=== PATIENT | male | born 1965 | race African-American/Black ===

== ENCOUNTER 2025-02-28 06:08 | Day surgery (SDC) | payer MEDICARE ==
[~2025-02-28] VITALS: Ht 167.6 cm; Wt 89.1 kg
[~2025-02-28 06:08] MED LIST: CODACE60 PO; HYDCHL25 PO
[2025-02-28] MEDS ORDERED: CeFAZolin Sodium 2,000 MG VIAL ONE (06:20)
[2025-02-28] MEDS ORDERED: CHLO25B PO (06:32)
[2025-02-28] MEDS ORDERED: LISI20 PO (06:32)
[2025-02-28] MEDS ORDERED: EZET10 PO (06:33)
[2025-02-28] MEDS ORDERED: FentaNYL Citrate 50 MCG/ML 2 ML Injection ONE (06:57)
[2025-02-28] MEDS ORDERED: Dexamethasone Sod Phos 10 MG/ML 1ML VIAL ONE (06:57)
[2025-02-28] MEDS ORDERED: Ondansetron HCl 2 MG / ML 2ML Vial ONE (06:57)
[2025-02-28] MEDS ORDERED: Bupivacaine HCl 0.25% 30 ML Injection ONE (06:58)
[2025-02-28] MEDS ORDERED: Ketorolac Tromethamine 30mg Vial ONE (06:58)
[2025-02-28] MEDS ORDERED: Rocuronium Bromide 10 MG/ML 5ML Injection IV ONE (06:58)
[2025-02-28] MEDS ORDERED: Bupivacaine 0.5% HCl 5 MG/ML 30MLVIAL ONE (06:58)
--- NOTE | 2025-02-28 07:38 | NUR ---
02/28/25 0738 Shawn Calvo TIME OUT 0727. DR GASPAR PERFORMS NERVE BLOCK. PT TOLERATED WELL. START TIME 0729, END TIME 0732.
[2025-02-28] MEDS ORDERED: Sugammadex Sodium 200 MG/2ML SDV (100 MG/ML) ONE (07:54)
[2025-02-28] MEDS ORDERED: Phenylephrine HCl 100 MCG/ML-NS 10MLSYR (1MG/10ML) ONE ×2 (07:59→08:11)
[2025-02-28] MEDS ORDERED: ePHEDrine Sulfate 50 MG/ML 1ML Injection ONE (08:19)
--- NOTE | 2025-02-28 09:47 | NUR ---
02/28/25 0947 Jeri Charlton REPORT RECEIVED FROM AIMEE MARIANO.
[2025-02-28 10:21] VITALS: BP 176/83
== END 2025-02-28 10:49 | disposition home or self-care (01) ==
LOC: ORSCSDS 06:08
PROVIDERS: Orthopaedic Surgery
PROC: 0LM24ZZ Reattachment of Left Shoulder Tendon, Percutaneous Endoscopic Approach (ICD-10-PCS; principal; 2025-02-28 07:30)
PROC: 0RNK4ZZ Release Left Shoulder Joint, Percutaneous Endoscopic Approach (ICD-10-PCS; principal; 2025-02-28 07:30)
DX: M75.102 Unspecified rotator cuff tear or rupture of left shoulder, not specified as traumatic (principal); S46.002A Unspecified injury of muscle(s) and tendon(s) of the rotator cuff of left shoulder, initial encounter; M75.42 Impingement syndrome of left shoulder; I10 Essential (primary) hypertension; I25.10 Atherosclerotic heart disease of native coronary artery without angina pectoris; E78.5 Hyperlipidemia, unspecified; Z79.899 Other long term (current) drug therapy; Z79.82 Long term (current) use of aspirin
CPT/HCPCS: C1713; J0166; J0690; J1100; J1885; J2371; J2405; J2704; J3010; J7120